=== PATIENT | male | born 1950 | race Caucasian/White ===

== ENCOUNTER 2017-05-28 06:59 | Inpatient (IN) | payer OTHER ==
[2017-05-21 14:58] VITALS: BMI 27.9
[2017-05-28] MEDS ORDERED: oxyCODONE HCL 10 MG SUSTAINED ACTING TABLET PO STA (07:25)
[2017-05-28] MEDS ORDERED: CEFAZOLIN 2 GM in DEXTROSE 5%-WATER - 100 ML IVPB ONE (07:25)
[2017-05-28] MEDS ORDERED: oxyCODONE HCL 10 MG SUSTAINED ACTING TABLET ONE (07:28)
[2017-05-28] MEDS ORDERED: LIDOCAINE 1%/EPI 1:100000 (20 ML MULTI DOSE VIAL) ONE (07:34)
[2017-05-28] MEDS ORDERED: BUPIVACAINE HCL/PF 2.5 MG/ML - 30 ML VIAL IJ ONE (07:34)
[2017-05-28] MEDS ORDERED: THROMBIN (BOVINE) 5,000 UNIT VIAL TP ONE ×3 (07:35→10:15)
[2017-05-28] MEDS ORDERED: MIDAZOLAM HCL 2 MG/2 ML SINGLE DOSE VIAL ONE ×2 (08:00→10:14)
[2017-05-28] MEDS ORDERED: ceFAZolin SODIUM 1 GM VIAL ONE ×2 (08:49→10:49)
[2017-05-28] MEDS ORDERED: ONDANSETRON 4 MG/2 ML VIAL ONE (08:49)
[2017-05-28] MEDS ORDERED: LIDOCAINE HCL 1%, 10 MG/ML (50 mL VIAL) IJ ONE (09:11)
[2017-05-28] MEDS ORDERED: GELATIN SPONGE,ABSORBABLE 1 GM PACKET TP ONE (09:37)
[2017-05-28] MEDS ORDERED: DEXAMETHASONE SOD PHOSPHATE 4 MG/1 ML VIAL ONE (10:29)
[2017-05-28] MEDS ORDERED: BUPIVACAINE HCL/PF 0.25% (2.5MG/ML) 10 ML VIAL IJ ONE (10:42)
[2017-05-28] MEDS ORDERED: oxyCODONE HCL 5 MG TABLET PO PRN ×2 (11:11→16:47)
[2017-05-28] MEDS ORDERED: ONDANSETRON 4 MG/2 ML VIAL IVPUSH PRN (11:11)
[2017-05-28] MEDS ORDERED: LACTATED RINGERS SOLUTION 1,000 ML IV SCH ×2 (11:15→17:00)
[2017-05-28] MEDS ORDERED: ACETAMINOPHEN 1000 MG/100 ML VIAL (NON FORMULARY) IVPB ONE ×2 (11:15→11:21)
--- NOTE | 2017-05-28 11:16 | HP ---
History & Physical Update - History History: No Change - Physical Physical: No Change - Assessment Assessment: No Change - Plan Plan: No Change
--- NOTE | 2017-05-28 11:17 | OP ---
Operative Note - Note: Operative Date: 05/28/17 Pre-Operative Diagnosis: L4/5 spondylolithesis Post-Operative Diagnosis: Same as Pre-op Surgeon: Manuel Abarca Chain Builder Loom Control: Fernando Marte Anesthesiologist/WIRELESS OPERATOR: Christine Spivey Anesthesia: Spinal Estimated Blood Loss (mls): 30 Fluid Volume Replaced (mls): 1,000 Operative Report Dictated: Yes
--- NOTE | 2017-05-28 11:19 | SURG ---
Surgery Data Processing Systems Consultant Note Data Processing Systems Consultant: Fernando Marte PA-C Date of Service: 05/28/17 Diagnosis: L4/5 spondylolithesis Procedure: Transforaminal lumbar (L4/5) interbody fusion/decompression/instrumentation and neuromonitoring I was present for the entirety of the operative procedure. For further detail, please refer to operative report. Visit type - Case Type Case Type: Scheduled Admission - New patient This patient is new to me today: Yes Date on this admission: 05/28/17
[2017-05-28] MEDS ORDERED: traMADol HCL 50 MG TABLET PO ONE (11:21)
[2017-05-28] MEDS ORDERED: diazePAM 5 MG TABLET PO ONE (11:21)
[2017-05-28] MEDS ORDERED: ACETAMINOPHEN INJECTION 100 ML IVPB ONE (11:24)
[2017-05-28] MEDS ORDERED: diazePAM 5 MG TABLET ONE (11:25)
--- NOTE | 2017-05-28 15:37 | OP ---
DATE OF OPERATION: 05/28/2017 PREOPERATIVE DIAGNOSES: 1. L4-5 spondylolisthesis. 2. L4-5 stenosis. POSTOPERATIVE DIAGNOSES: 1. L4-5 spondylolisthesis. 2. L4-5 stenosis. PROCEDURE PERFORMED: 1. Transforaminal lumbar interbody fusion at L4-5. 2. Placement of instrumentation. 3. Hemilaminectomy. SURGEON: Manuel Abarca MD PEDORTHIST: KIKA Abraham ESTIMATED BLOOD LOSS: 50 mL INTRAVENOUS FLUIDS: Per Anesthesia. ANESTHESIA: Spinal. COMPLICATIONS: None. DISPOSITION: The patient was brought to the PACU in stable condition. INDICATIONS FOR SURGERY: The patient is a 67-year-old gentleman who comes in today, who has been complaining of pain from his back down his legs. X-rays and MRI were completed which noted that he had spinal stenosis at L4-5 secondary to a spondylolisthesis. He had gone through an exhaustive course of treatment for this, which included medications, physical therapy as well as injections. Unfortunately, his pain continued to persist despite all this. At this point, his risks, benefits, and alternatives were discussed, and the patient consented to surgery. DESCRIPTION OF OPERATION: The patient was brought to the operating room by the anesthesia staff. After appropriate patient identification was performed, spinal anesthesia was given. He was placed prone onto the OR table with all areas of bony prominences well padded at this time. The L4 and L5 pedicles were marked off, and 10 mL of lidocaine with epinephrine were injected into his back at this time. His back was prepped and draped in a sterile manner. At this point, timeout was completed. Incisions were made bilaterally over the L4 and L5 pedicles. Dissection was carried down to the fascia. Fascia was then split open at this time. C-arm was brought in. Under C-arm guidance, trocars were advanced into both the L4 and L5 pedicles. Through the trocars, wire was inserted. Over the wires, tap was performed and screws were inserted. On the left-hand side, retractor blades were set up to expose the L4-5 facet joint. The facet joint was removed with a bur and osteotome. The disk was entered. Using a series of pituitaries, Kerrisons, and curettes, a diskectomy was completed. The endplates were decorticated at this time. Bone graft was laid down. A cage filled with bone graft was placed in. Tulip heads were placed over the screws. A gigi was measured and placed in. Caps were placed on. Compression and final tightening was performed. On the right-hand side, a gigi was measured and placed in. Caps were placed on. Compression and final tightening was performed at this time. All x-ray instrumentation was removed at this time. AP and lateral x-rays confirmed the instrumentation to be in good position. Exparel was injected into the fascia. The fascia was closed with a No. 1 Vicryl suture. The subcutaneous tissue was closed with 2-0 Vicryl suture. Skin was closed with 3-0 Monocryl suture. Dermabond was applied. Steri-Strips were applied. A sterile dressing was applied. The patient was placed supine on the OR bed and brought to the PACU in stable condition. It should be noted that neuromonitoring was stable throughout the operative course. Raeann [id number] MTDD
[2017-05-28] MEDS ORDERED: oxyCODONE HCL 5 MG TABLET ONE ×3 (15:39→21:43)
[2017-05-28] MEDS: oxyCODONE HCL 5 MG TABLET PO PRN ×2 (15:41→21:45)
[2017-05-28] MEDS ORDERED: HYDROmorphone HCL 2 MG TABLET ONE ×2 (16:29→20:07)
[2017-05-28] MEDS ORDERED: CEFAZOLIN 1 GM in DEXTROSE 5%-WATER - 50 ML IVPB ONE (16:45)
[2017-05-28] MEDS ORDERED: KETOROLAC TROMETHAMINE 30 MG/1 ML VIAL IVPUSH PRN (16:47)
[2017-05-28] MEDS ORDERED: ONDANSETRON 4 MG/2 ML VIAL IVPB PRN (16:47)
[2017-05-28] MEDS ORDERED: ACETAMINOPHEN 1000 MG/100 ML VIAL (NON FORMULARY) IVPB PRN (16:47)
[2017-05-28] MEDS ORDERED: ACETAMINOPHEN 325 MG TABLET (FP) PO PRN (16:47)
[2017-05-28] MEDS ORDERED: CYCLOBENZAPRINE HCL 10 MG TABLET (FP) PO PRN (16:47)
[2017-05-28] MEDS ORDERED: morphine CARPU-JECT 4 MG/1 ML DISP.SYRIN IVPUSH PRN (16:47)
[2017-05-28] MEDS ORDERED: CEFAZOLIN 1 GM/D5W 50 ML ONE (17:20)
[2017-05-28] MEDS ORDERED: HYDROmorphone HCL 2 MG TABLET PO ONE (20:30)
[2017-05-28] MEDS: diazePAM 5 MG TABLET PO PRN (20:33)
[2017-05-28] MEDS: HYDROmorphone HCL 2 MG TABLET PO PRN (20:44)
[2017-05-28] MEDS: CYCLOBENZAPRINE HCL 10 MG TABLET (FP) PO SCH (21:07)
[2017-05-28] MEDS: KETOROLAC TROMETHAMINE 15 MG/ML VIAL IVPUSH SCH (21:41)
[2017-05-28] MEDS ORDERED: PATIENT'S OWN MEDICATION (NON-FORMULARY) (Dextroamphetamine/Amphetamine [Adderall Xr 20 Mg PO SCH ×2 (22:00)
[2017-05-28] MEDS ORDERED: PATIENT'S OWN MEDICATION (NON-FORMULARY) (Omega-3s/Dha/Epa/Fish Oil [Fish Oil 1,200 Mg Sof PO SCH ×2 (22:00)
[2017-05-28] MEDS ORDERED: LOSARTAN POTASSIUM 25 MG TABLET PO SCH (22:00)
[2017-05-28] MEDS ORDERED: ATORVASTATIN CA 10 MG TABLET (FP) PO SCH (22:00)
[2017-05-29] MEDS: traMADol HCL 50 MG TABLET PO SCH ×2 (00:14→07:07)
[2017-05-29] MEDS: HYDROmorphone HCL 2 MG TABLET PO PRN ×3 (00:15→09:56)
[2017-05-29] MEDS: CEFAZOLIN (PRE-DOCKED) 50 ML IVPB SCH ×2 (01:24→01:48)
[2017-05-29] MEDS: KETOROLAC TROMETHAMINE 15 MG/ML VIAL IVPUSH SCH ×2 (02:24→09:56)
[2017-05-29] MEDS: diazePAM 5 MG TABLET PO PRN (04:47)
[2017-05-29] MEDS: CYCLOBENZAPRINE HCL 10 MG TABLET (FP) PO SCH (07:07)
--- NOTE | 2017-05-29 07:11 | DS ---
Physical Exam: SUBJECTIVE: Patient seen and examined. Alert. Resting in position of comfort. Voiding spontaneously. Ambulating hallways unassisted. Tolerating regular diet. Pain managed well via prn meds. Denies n/v/f/c, CP or SOB. OBJECTIVE: Last Vital Signs Temp Pulse Resp BP Pulse Ox 98.5 F 57 L 18 161/85 97 05/29/17 06:00 05/29/17 06:00 05/29/17 06:00 05/29/17 06:00 05/29/17 06:00 PE GENERAL: awake, alert, and fully oriented, in no acute distress. HEAD: Normal with no signs of trauma. EYES: PERRL, extraocular movements intact, sclera anicteric, conjunctiva clear. NECK: Trachea midline, full range of motion, supple. LUNGS: CTA bilat anteriroly HEART: RRR ABDOMEN: Soft, nontender, nondistended, normoactive bowel sounds, no guarding, no rebound. EXTREMITIES: 2+ pulses, warm, well-perfused, no edema. NEUROLOGICAL: CN II-XII grossly intact. Normal speech. gait unremarkable PSYCH: Normal mood, normal affect. SKIN: Lumbar dressing (aquacel) c/d/i. No hematoma. LABS HOSPITAL COURSE: Date of Admission:05/28/17 Date of Discharge: 05/29/17 The patient was admitted to the Med-Surg Unit after an elective repair of their L4/5 spondylolithesis. Now, s/p transforaminal lumbar (L4/5) interbody fusion/ decompression/instrumentation and neuromonitoring. The day of surgery, the patient ambulated the hallways with assistance. Narcotic and non-narcotic pain management control was achieved with an oral and IV approach. POD #0, xray shows hadware in good position at L4/5 level, no fractures or dislocations. Alma-operative IV ABX were administered. DVT prophylaxis was achieved with SCDs and early ambulation. The patient ambulated with Physical Therapy and no services were recommended upon discharge. Narcotic scripts and or muscle relaxants were checked with [place] LASTING ROOM MACHINE OPERATOR prior to escribe. The discharge instructions and an oral pain management plan were reviewed with the patient. All questions answered. Above plan discussed with Dr. Abarca and agreed. Minutes to complete discharge: 20 <Fernando Marte P - Last Filed: 05/29/17 07:05> Physical Exam: SUBJECTIVE: Patient seen and examined OBJECTIVE: Vital Signs Temperature 98.4 F 05/29/17 10:00 Pulse Rate 59 L 05/29/17 10:00 Respiratory Rate 18 05/29/17 10:00 Blood Pressure 148/67 05/29/17 10:00 O2 Sat by Pulse Oximetry (%) 97 05/29/17 06:00 PHYSICAL EXAM GENERAL: The patient is awake, alert, and fully oriented, in no acute distress. HEAD: Normal with no signs of trauma. EYES: PERRL, extraocular movements intact, sclera anicteric, conjunctiva clear. ENT: Ears normal, nares patent, oropharynx clear without exudates, moist mucous membranes. NECK: Trachea midline, full range of motion, supple. LUNGS: Breath sounds equal, clear to auscultation bilaterally, no wheezes, no crackles, no accessory muscle use. HEART: Regular rate and rhythm, S1, S2 without murmur, rub or gallop. ABDOMEN: Soft, nontender, nondistended, normoactive bowel sounds, no guarding, no rebound, no hepatosplenomegaly, no masses. EXTREMITIES: 2+ pulses, warm, well-perfused, no edema. NEUROLOGICAL: Cranial nerves II through XII grossly intact. Normal speech, gait not observed. PSYCH: Normal mood, normal affect. SKIN: Warm, dry, normal turgor, no rashes or lesions noted. LABS CBC,CMP WBC 17.9 K/mm3 (4.0-10.8) H 05/29/17 07:00 RBC 4.51 M/mm3 (4.00-5.60) 05/29/17 07:00 Hgb 13.0 GM/dl (11.7-16.9) 05/29/17 07:00 Hct 39.5 % (35.4-49) 05/29/17 07:00 MCV 87.6 fl (80-96) 05/29/17 07:00 MCH 28.9 pg (25.7-33.7) 05/29/17 07:00 MCHC 33.0 g/dl (32.0-35.9) 05/29/17 07:00 RDW 14.3 % (11.9-15.9) 05/29/17 07:00 Plt Count 155 K/MM3 (134-434) 05/29/17 07:00 MPV 10.6 fl (7.5-11.1) 05/29/17 07:00 Sodium 137 mmol/L (136-145) 05/29/17 07:00 Potassium 4.3 mmol/L (3.5-5.1) 05/29/17 07:00 Chloride 103 mmol/L (98-107) 05/29/17 07:00 Carbon Dioxide 28 mmol/L (22-28) 05/29/17 07:00 Anion Gap 6 (8-16) L 05/29/17 07:00 BUN 15 mg/dl (7-18) 05/29/17 07:00 Creatinine 0.7 mg/dl (0.6-1.3) 05/29/17 07:00 Random Glucose 116 mg/dl (74-106) H 05/29/17 07:00 Calcium 9.2 mg/dl (8.4-10.2) 05/29/17 07:00 HOSPITAL COURSE: Date of Admission:05/28/17 Date of Discharge: 06/04/17 The patient was admitted to the Med-Surg Unit after an elective repair of their L4-5 spondylolisthesis. The day of surgery, the patient ambulated the hallways with assistance. Narcotic and non-narcotic pain management control was achieved with an oral and IV approach. POD #1, the surgical drain was removed fully intact and without incident. An xray was obtained and confirmed hardware placement at L4-5, no fractures or dislocations. Alma-operative IV ABX were administered. DVT prophylaxis was achieved with SCDs and early ambulation. The patient ambulated with Physical Therapy and no services were recommended upon discharge. Narcotic scripts and or muscle relaxants were checked with [facility] LASTING ROOM MACHINE OPERATOR prior to escibe. The discharge instructions and an oral pain management plan were reviewed with the patient. All questions answered. Above plan discussed with Dr. Abarca and agreed. Patient was having pain last night Patient given a script for Dilaudid and Percocet We discussed his pain management schedule D/C Home F/U in the office <Manuel Abarca - Last Filed: 06/04/17 11:04> Visit type - Case Type Case Type: Scheduled Admission <Fernando Marte - Last Filed: 05/29/17 07:05>
[2017-05-29 08:07] LABS: MCH 28.9 pg (25.7-33.7); MEAN CELL VOLUME 87.6 fl (80-96); MEAN PLT VOLUME 10.6 fl (7.5-11.1); PLATELET COUNT 155 K/MM3 (134-434); RDW 14.3 % (11.9-15.9); WHITE BLOOD COUNT 17.9 K/mm3 (4.0-10.8)
[2017-05-29 08:14] LABS: ANION GAP 6 (8-16); CALCIUM 9.2 mg/dl (8.4-10.2); CO2 28 mmol/L (22-28); CREATININE 0.7 mg/dl (0.6-1.3); GLUCOSE,RANDOM 116 mg/dl (74-106)
[2017-05-29] MEDS ORDERED: ASPIRIN COATED 81 MG TABLET.EC PO SCH (10:00)
--- NOTE | 2017-05-29 10:31 | PN ---
Progress Note (short form) - Note Progress Note: Anesthesia post op note: S/P Lumbar fusion, POD#1. Pat seen and examined. VSS. No post anesthesia complications.
[2017-05-29 10:54] VITALS: BP 148/67; PULSE 59; TEMP 98.4
== END 2017-05-29 11:34 | disposition home or self-care (01) | DRG 460 ==
LOC: FM/S 06:59 → UNDOADMIN 06:59 → FM/S 19:41 → OBSVTOIN 19:42
PROVIDERS: ADMIT Orthopaedic Surgery Orthopaedic Surgery of the Spine; ATTEND Orthopaedic Surgery Orthopaedic Surgery of the Spine
PROC: 0SB20ZZ Excision of Lumbar Vertebral Disc, Open Approach (ICD-10-PCS; 2017-05-28)
PROC: 0SG00AJ Fusion of Lumbar Vertebral Joint with Interbody Fusion Device, Posterior Approach, Anterior Column, Open Approach (ICD-10-PCS; principal; 2017-05-28 08:15)
DX: M43.16 Spondylolisthesis, lumbar region (principal); M48.06 Spinal stenosis, lumbar region; I25.10 Atherosclerotic heart disease of native coronary artery without angina pectoris; Z95.5 Presence of coronary angioplasty implant and graft
CPT/HCPCS: 36415; 72100-TC; 76001-TC; 80048; 85027; 86803; 94760; 97116-GP; 97161-GP; G0378